=== PATIENT | male | born 1965 | race Caucasian/White ===

== ENCOUNTER 2016-04-02 15:50 | Emergency (ER) | payer OTHER ==
[2016-04-02 16:05] VITALS: BP 140/82; PULSE 78; TEMP 98.3; BMI 26.6
[2016-04-02] MEDS ORDERED: ONDANSETRON 4 MG/2 ML VIAL IVPUSH ONE (16:05)
[2016-04-02] MEDS ORDERED: SODIUM CHLORIDE 1,000 ML IV STA ×2 (16:05→17:17)
[2016-04-02] MEDS ORDERED: FAMOTIDINE 20 MG/50 ML IVPB 50 ML IVPB ONE ×2 (16:05→16:33)
[2016-04-02] MEDS ORDERED: ACETAMINOPHEN 1000 MG/100 ML VIAL (NON FORMULARY) IVPB ONE (16:23)
[2016-04-02] MEDS ORDERED: ACETAMINOPHEN INJECTION 100 ML IVPB ONE (16:34)
[2016-04-02] MEDS ORDERED: ONDANSETRON 4 MG/2 ML VIAL ONE (16:34)
--- NOTE | 2016-04-02 16:41 | PDOC ---
History of Present Illness - General History Source: Patient Exam Limitations: No Limitations - History of Present Illness Initial Comments: 04/02/16 18:01 The patient is a 51 year old male, with a significant past medical history of vomiting, ulcers, gastritis and distal esophagitis, who presents to the emergency department with abdominal pain, nausea and vomiting since 3am. He describes the pain as intermittent in nature, localized in the right upper quadrant, ranging from mild to moderate, without radiation or modifying factors. He notes that he has had a total of 10 episodes of vomiting since this morning, which he describes as a yellow consistency. He reports that The patient had an upper endoscopy performed on 02/27/15, the findings were notable for multiple erosions and small ulcer in duodenal bulb, mild gastritis and distal esophagitis. The patient denies chest pain, shortness of breath, headache and dizziness. Denies fever, chills, nausea, vomit, diarrhea and constipation. Denies dysuria, frequency, urgency and hematuria. Allergies: None Past surgical history: Knee surgery Social history: Alcohol, tobacco (10 daily) and marijuana use. <Juan Ramon Serrano - Last Filed: 04/02/16 18:27> - General History Source: Patient, Old Records Exam Limitations: No Limitations <Karmen Castillo - Last Filed: 04/03/16 15:35> - General Chief Complaint: Pain Stated Complaint: ABD PAIN Time Seen by Provider: 04/02/16 15:55 Past History <Juan Ramon Serrano - Last Filed: 04/02/16 18:27> - Past Medical History GI Disorders: Yes (H/O VOMITING, GASTRITIS) - Psycho/Social/Smoking Cessation Hx Anxiety: No Suicidal Ideation: No Smoking Status: Yes Smoking History: Unknown if ever smoked Have you smoked in the past 12 months: Yes Number of Cigarettes Smoked Daily: 10 'Breaking Loose' booklet given: 10/21/15 Hx Alcohol Use: Yes Drug/Substance Use Hx: No Substance Use Type: Alcohol, Marijuana Hx Substance Use Treatment: No <Karmen Castillo - Last Filed: 04/03/16 15:35> - Past Medical History Allergies/Adverse Reactions: Allergies Allergy/AdvReac Type Severity Reaction Status Date / Time No Known Allergies Allergy Verified 04/02/16 15:52 Home Medications: Ambulatory Orders Ondansetron [Zofran Odt -] 4 mg SL TID PRN #10 od.tablet 10/19/15 Oxycodone HCl/Acetaminophen [Percocet 5-325 mg Tablet] 1 tab PO Q6H PRN #8 tablet MDD 4 10/19/15 Ondansetron HCl [Zofran] 4 mg PO BID PRN #20 tablet 04/02/16 Review of Systems - Review of Systems Able to Perform ROS?: Yes Comments:: 04/02/16 18:01 GENERAL/CONSTITUTIONAL: No: fever, chills, weakness, loss of appetite. HEAD, EYES, EARS, NOSE AND THROAT: No: change in vision, ear pain, discharge, sore throat, throat swelling. CARDIOVASCULAR: No: chest pain, lightheadedness, palpitations, syncope RESPIRATORY: No: cough, shortness of breath, wheezing, hemoptysis, stridor. GASTROINTESTINAL: +Abdominal pain, Nausea, vomiting. No: diarrhea, rectal bleeding, constipation. GENITOURINARY: No: dysuria, hematuria, frequency, urgency, flank pain. MUSCULOSKELETAL: No: back pain, neck pain, joint pain, muscle swelling or pain SKIN AND BREASTS: No: lesions, pallor, rash or easy bruising. NEUROLOGIC: No: headache, vertigo, paresthesias, weakness ENDOCRINE: No: unexplained weight gain or loss HEMATOLOGIC/LYMPHATIC: No: anemia, easy bleeding, swelling nodes <Juan Ramon Serrano - Last Filed: 04/02/16 18:27> *Physical Exam - Vital Signs Last Vital Signs Temp Pulse Resp BP Pulse Ox 98.3 F 78 18 140/82 100 04/02/16 15:50 04/02/16 15:50 04/02/16 15:50 04/02/16 15:50 04/02/16 15:50 - Physical Exam Comments: 04/02/16 18:01 GENERAL: The patient is moderate distress. HEAD: Normal with no signs of trauma. EYES: PERRLA, EOMI, sclera anicteric, conjunctiva clear. ENT: Ears normal, nares patent, oropharynx clear without exudates. Moist mucous membranes. NECK: Normal range of motion, supple without lymphadenopathy, JVD, or masses. LUNGS: Breath sounds equal, clear to auscultation bilaterally. No wheezes, and no crackles. HEART:Regular rate and rhythm, normal S1 and S2 without murmur, rub or gallop. ABDOMEN: Soft, nontender, normoactive bowel sounds. No guarding, no rebound. EXTREMITIES: Normal range of motion, no edema. No clubbing or cyanosis. No erythema, or tenderness. NEUROLOGICAL: Cranial nerves II through XII grossly intact. Normal speech. No focal neurological deficits. MUSCULOSKELETAL: Back non-tender to palpation, no CVA tenderness SKIN: Warm, Dry, normal turgor, no rashes or lesions noted. <Juan Ramon Serrano - Last Filed: 04/02/16 18:27> - Vital Signs Last Vital Signs Temp Pulse Resp BP Pulse Ox 98.3 F 78 18 140/82 100 04/02/16 15:50 04/02/16 15:50 04/02/16 15:50 04/02/16 15:50 04/02/16 15:50 <Karmen Castillo - Last Filed: 04/03/16 15:35> ED Treatment Course - LABORATORY CBC & Chemistry Diagram: 04/02/16 16:30 04/02/16 16:30 - ADDITIONAL ORDERS Additional order review: Laboratory Results 04/02/16 16:30 Sodium 138 Potassium 4.3 Chloride 102 Carbon Dioxide 25 Anion Gap 11 BUN 14 D Creatinine 0.8 Creat Clearance w eGFR > 60 Random Glucose 135 H D Calcium 10.2 Total Bilirubin 0.6 D AST 51 H D ALT 47 H D Alkaline Phosphatase 115 H D Total Protein 8.1 Albumin 5.4 H D Total Amylase 76 D Lipase 39 04/02/16 16:30 RBC 5.84 H MCV 89.5 MCHC 34.1 RDW 11.7 L MPV 7.8 Neutrophils % 84.5 H Lymphocytes % 11.8 D Monocytes % 3.0 L Eosinophils % 0.0 D Basophils % 0.7 - RADIOLOGY Radiograph Interpretation: 04/02/16 18:27 Abdominal ultrasound Reviewed by: Dr. Jamila Arcos Impression: Unremarkable examination - Medications Given in the ED: ED Medications Discontinued Medications Generic Name Dose Route Start Last Admin Trade Name Freq PRN Reason Stop Dose Admin Acetaminophen 1,000 mg 04/02/16 16:23 04/02/16 16:50 Ofirmev Injection - IVPB 04/02/16 16:24 1,000 mg ONCE ONE Administration Hydromorphone HCl 0.5 mg 04/02/16 17:17 04/02/16 17:30 Dilaudid Injection - IVPB 04/02/16 17:18 0.5 mg ONCE ONE Administration Famotidine/Sodium Chloride 50 mls @ 100 mls/hr 04/02/16 16:05 04/02/16 16:40 Pepcid 20 Mg Premixed Ivpb - IVPB 04/02/16 16:34 100 mls/hr ONCE ONE Administration Metoclopramide HCl 10 mg 04/02/16 17:17 04/02/16 17:35 Reglan Injection - IVPB 04/02/16 17:18 10 mg ONCE ONE Administration Ondansetron HCl 4 mg 04/02/16 16:05 04/02/16 16:30 Zofran Injection IVPUSH 04/02/16 16:06 4 mg ONCE ONE Administration <Juan Ramon Serrano - Last Filed: 04/02/16 18:27> - LABORATORY CBC & Chemistry Diagram: 04/02/16 16:30 04/02/16 16:30 <Karmen Castillo - Last Filed: 04/03/16 15:35> Medical Decision Making - Medical Decision Making 04/02/16 16:41 A portion of this note was documented by scribe services under my direction. I have reviewed the details of the note, within reason, and agree with the documentation with the following case summary and management plan written by me. Nursing documentation reviewed and incorporated into medical decision making 04/02/16 19:06 51 yo M Multiple presentations to the ER for intractable vomiting S/p GI work up in the past Presents with vomiting since yesterday No fevers or chills Pain in the RUQ 04/02/16 19:09 Laboratory Tests 10/21/15 10/21/15 04/02/16 11:00 11:00 16:30 WBC 12.4 H 16.4 H D Hgb 15.9 17.8 H D Hct 46.3 52.3 H Plt Count 307 334 Neutrophils % 84.5 H Lymphocytes % 11.8 D BUN 9 D Creatinine 0.8 AST 20 ALT 20 D Alkaline Phosphatase 84 Total Amylase Lipase 04/02/16 16:30 WBC Hgb Hct Plt Count Neutrophils % Lymphocytes % BUN 14 D Creatinine 0.8 AST 51 H D ALT 47 H D Alkaline Phosphatase 115 H D Total Amylase 76 D Lipase 39 01/06/17 19:09 US: gallbladder adequately distended No intraluminal stones no PCCF Pt states he feels better Labs demonstrate slight transaminitis and elevated hgb (likely due to dehydration) Pt given NS x 2 L Pt given Zofran and Reglan Pt given Dilaudid 0.5 x 2 Pt states he feels much better Pt will be discharged to home Follow up with PMD <Karmen Castillo - Last Filed: 04/03/16 15:35> *DC/Admit/Observation/Transfer - Attestations Scribe Attestion: 04/02/16 18:03 Documentation prepared by Juan Ramon Serrano, acting as medical assistant supervisor for Karmen Castillo MD. <Juan Ramon Serrano - Last Filed: 04/02/16 18:27> - Discharge Dispostion Admit: No <Karmen Castillo - Last Filed: 04/03/16 15:35> Diagnosis at time of Disposition: Nausea and vomiting Qualifiers: Vomiting type: unspecified Vomiting Intractability: non-intractable Qualified Code(s): R11.2 - Nausea with vomiting, unspecified Gastritis Qualifiers: Gastritis type: unspecified gastritis Chronicity: acute Gastritis bleeding: without bleeding Qualified Code(s): K29.00 - Acute gastritis without bleeding - Discharge Dispostion Disposition: HOME Condition at time of disposition: Improved - Prescriptions Prescriptions: Ondansetron HCl [Zofran] 4 mg PO BID PRN #20 tablet PRN Reason: Nausea - Referrals Referrals: Nataly Lindsey MD [Primary Care Provider] - - Patient Instructions Printed Discharge Instructions: DI for Vomiting -- Adult Additional Instructions: Return to the emergency department immediately with ANY new, persistent or worsening symptoms. Continue any medications as previously prescribed by your physician. You should follow up with your primary doctor as soon as possible regarding today's emergency department visit. . Please make sure your doctor reviews the results of your emergency evaluation. Thank you for coming to the [facility] today for your care. It was a pleasure to see you today. Please note that your evaluation is INCOMPLETE until you follow-up with your doctor.
[2016-04-02 16:44] LABS: BASOPHIL 0.7 % (0-2.0); MCH 30.5 pg (25.7-33.7); MCHC 34.1 g/dl (32.0-35.9); MEAN CELL VOLUME 89.5 fl (80-96); MEAN PLT VOLUME 7.8 fl (7.5-11.1); NEUTROPHILS 84.5 % (42.8-82.8); PLATELET COUNT 334 K/MM3 (134-434); RDW 11.7 % (11.9-15.9); WHITE BLOOD COUNT 16.4 K/mm3 (4.0-10.0)
[2016-04-02 17:10] LABS: ALBUMIN 5.4 g/dl (3.5-5.0); ALK PHOS 115 U/L (32-92); AMYLASE 76 U/L (25-125); ANION GAP 11 (8-16); BILIRUBIN,TOTAL 0.6 mg/dl (0.2-1.0); CALCIUM 10.2 mg/dl (8.4-10.2); CO2 25 mmol/L (22-28); CREATININE 0.8 mg/dl (0.6-1.3); GLUCOSE,RANDOM 135 mg/dl (74-106); SGOT/AST 51 U/L (10-42); SGPT/ALT 47 U/L (10-40); TOT PROT 8.1 g/dl (6.4-8.3)
[2016-04-02] MEDS ORDERED: HYDROmorphone HCL CARPU-JECT 1 MG/1 ML DISP.SYRIN IVPB ONE ×2 (17:17→18:29)
[2016-04-02] MEDS ORDERED: METOCLOPRAMIDE HCL INJECTION 10 MG/2 ML VIAL IVPB ONE (17:17)
[2016-04-02] MEDS ORDERED: HYDROmorphone HCL CARPU-JECT 2 MG/1 ML DISP.SYRIN ONE ×2 (17:26→18:33)
== END 2016-04-02 19:33 | disposition home or self-care (01) ==
LOC: FER 15:50
PROC: 3E033NZ Introduction of Analgesics, Hypnotics, Sedatives into Peripheral Vein, Percutaneous Approach (ICD-10-PCS; principal; 2016-04-02)
PROC: 3E033GC Introduction of Other Therapeutic Substance into Peripheral Vein, Percutaneous Approach (ICD-10-PCS; 2016-04-02)
PROC: 3E0337Z Introduction of Electrolytic and Water Balance Substance into Peripheral Vein, Percutaneous Approach (ICD-10-PCS; 2016-04-02)
DX: K29.00 Acute gastritis without bleeding (principal); R11.2 Nausea with vomiting, unspecified; F17.210 Nicotine dependence, cigarettes, uncomplicated
CPT/HCPCS: 36415; 76705-TC; 80053; 82150; 83690; 85025; 96361; 96365; 96375; 96376; 99283-25

== ENCOUNTER 2018-01-10 08:36 | Emergency (ER) | payer OTHER ==
[2018-01-10 08:51] VITALS: BP 130/92; PULSE 73; TEMP 97.7; BMI 26.6
[2018-01-10] MEDS ORDERED: KETOROLAC TROMETHAMINE 60 MG/2 ML VIAL ONE (09:15)
[2018-01-10] MEDS: KETOROLAC TROMETHAMINE 30 MG/1 ML VIAL IM ONE ×2 (09:20→09:23)
--- NOTE | 2018-01-10 09:21 | PDOC ---
History of Present Illness - General Chief Complaint: Pain Stated Complaint: RIGHT HAND SWELLING AND PAIN Time Seen by Provider: 01/10/18 08:46 - History of Present Illness Initial Comments: 01/10/18 09:21 52 years old no significant past medical history presents the emergency department with 2 week history of pain and tenderness over his right third MCP joint. 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 [id number] uses his right hand with repetitive motions alleviated somewhat by rest. Moderate to severe persistent constant Past History - Past Medical History Allergies/Adverse Reactions: Allergies Allergy/AdvReac Type Severity Reaction Status Date / Time No Known Allergies Allergy Verified 01/10/18 08:40 Home Medications: Ambulatory Orders NK [No Known Home Medication] 01/10/18 COPD: Yes (mild) GI Disorders: Yes (H/O VOMITING, GASTRITIS) - Suicide/Smoking/Psychosocial Hx Smoking Status: Yes Smoking History: Current every day smoker Have you smoked in the past 12 months: Yes Number of Cigarettes Smoked Daily: 20 Information on smoking cessation initiated: Yes 'Breaking Loose' booklet given: 01/10/18 Hx Alcohol Use: Yes (social) Drug/Substance Use Hx: No Substance Use Type: None Hx Substance Use Treatment: No Review of Systems - Review of Systems Comments:: 01/10/18 09:22 ROS: A complete review of 10 out of 10 review of systems is taken and is negative apart from what is previously mentioned below and in the HPI. *Physical Exam - Vital Signs Last Vital Signs Temp Pulse Resp BP Pulse Ox 97.7 F 73 18 130/92 100 01/10/18 08:40 01/10/18 08:40 01/10/18 08:40 01/10/18 08:40 01/10/18 08:40 - Physical Exam Comments: 01/10/18 09:22 Vitals: Triage Vital signs reviewed General Appearance: no acute distress, well nourished well developed, Head: Atraumatic, Extremities: Full range of motion to all extremities, no cyanosis, clubbing, or edema, neurovascularly intact distally, tenderness to palpation just distal to the MCP over the extensor tendon sheath. Skin: Warm and dry, no rashes or lesions, no rash, no petechiae Neuro: Strength intact to all extremities, Sensation intact to all extremities, Psych: normal mood, normal affect ED Treatment Course - RADIOLOGY Radiology Studies Ordered: Category Date Time Status HAND- RIGHT [RAD] Stat Radiology 01/10/18 08:56 Ordered Medical Decision Making - Medical Decision Making 01/10/18 09:23 No acute fracture dislocation noted on x-ray. Patient treated with Toradol emergency department. History examination is with either arthritis versus extensor tendon strain versus small tear to the extensor tendon given the patient has good strength and movement at the MCP joint although somewhat limited by pain We have arranged patient follow-up with hand surgery Findings, the need for follow-up and strict return instructions discussed with patient. *DC/Admit/Observation/Transfer Diagnosis at time of Disposition: Tendon injury - Discharge Dispostion Condition at time of disposition: Stable Decision to Admit order: No - Referrals Referrals: Robin Villanueva MD [Staff Physician] - - Patient Instructions Printed Discharge Instructions: Smoking Cessation, Tendonitis (Alternative Therapy) Additional Instructions: Rest. Do not use right hand. Ice affected joint 20 minutes on 20 minutes off. Take [id number] Tylenol as directed on package. Follow-up on with Dr. Robin plummer. Return to ED for any severe worsening symptoms or for any concerns. - Post Discharge Activity Forms/Work/School Notes: Back to Work
== END 2018-01-10 10:00 | disposition home or self-care (01) ==
LOC: FER 08:36
PROC: 3E0233Z Introduction of Anti-inflammatory into Muscle, Percutaneous Approach (ICD-10-PCS; principal; 2018-01-10)
DX: S66.901A Unspecified injury of unspecified muscle, fascia and tendon at wrist and hand level, right hand, initial encounter (principal); X58.XXXA Exposure to other specified factors, initial encounter; Y93.89 Activity, other specified; Y92.89 Other specified places as the place of occurrence of the external cause; Y99.0 Civilian activity done for income or pay; F17.210 Nicotine dependence, cigarettes, uncomplicated; J44.9 Chronic obstructive pulmonary disease, unspecified
CPT/HCPCS: 73130-TC-RT-FY; 96372; 99282-25

== ENCOUNTER 2021-01-12 09:38 | Emergency (ER) | payer OTHER ==
[2021-01-12 10:29] VITALS: BP 144/87; PULSE 90; TEMP 97.7; BMI 26.6
== END 2021-01-12 12:01 | disposition home or self-care (01) ==
LOC: FER 09:38
DX: S59.901A Unspecified injury of right elbow, initial encounter (principal); X50.0XXA Overexertion from strenuous movement or load, initial encounter
CPT/HCPCS: 73070-TC-RT-FY; 99283-25